=== PATIENT | female | born 1990 | race Caucasian/White ===

== ENCOUNTER 2019-03-13 20:52 | Emergency (ER) | payer OTHER ==
[~2019-03-13] VITALS: Ht 160 cm; Wt 68.2 kg
[2019-03-13 21:26] VITALS: BP 140/77
[2019-03-13] MEDS ORDERED: ACETAMINOPHEN 325MG TABLET ONE (21:30)
== END 2019-03-14 01:23 | disposition left against medical advice (07) ==
LOC: ER 20:52
DX: Z53.21 Procedure and treatment not carried out due to patient leaving prior to being seen by health care provider (principal)